=== PATIENT | female | born 1950 | race Caucasian/White ===

== ENCOUNTER 2019-02-07 20:26 | Observation (INO) | payer MEDICARE, OTHER ==
[2019-02-07] MEDS: TEMAZEPAM 15 MG CAP PO SCH (22:41)
[2019-02-07] MEDS: CARVEDILOL 12.5 MG TAB PO SCH (22:41)
[2019-02-07] MEDS: hydrALAZINE HCL 25 MG TAB PO SCH (22:41)
[2019-02-08] MEDS: CARVEDILOL 12.5 MG TAB PO SCH ×2 (06:29→18:46)
[2019-02-08] MEDS ORDERED: ASPIRIN 325 MG TAB PO STA (09:37)
[2019-02-08] MEDS: ATORVASTATIN 40 MG TAB PO SCH (10:27)
[2019-02-08] MEDS: hydrALAZINE HCL 25 MG TAB PO SCH ×3 (10:27→23:01)
[2019-02-08] MEDS ORDERED: LIDOCAINE 1% INJ 10MG/ML (20 ML MDV) ONE (15:10)
--- NOTE | 2019-02-08 15:21 | PN ---
PROGRESS NOTE Mrs Gaffney is an lady with CAD under the care of Dr. Conteh, transferred from [facility] for LAD PLUCK SEPARATOR to be performed later today. She is resting comfortably. Vitals are stable, S1-S2 heard normally. Lungs are clear. Abdomen and lower extremity exam unchanged. Plan is to continue current medications, increase activity and she will proceed with PCI by Dr. Conteh this afternoon. I am resuming her medications including beta blockers, statins, and also aspirin as well. She will received 325 mg of aspirin today. MMODL / IJN: [id number] /
[2019-02-08] MEDS ORDERED: MIDAZOLAM 2 MG/2 ML VIAL IV ONE (15:32)
[2019-02-08] MEDS ORDERED: SODIUM CHLORIDE 0.9% 1,000 ML IV ONE (15:33)
[2019-02-08] MEDS ORDERED: LIDOCAINE 1% INJ 10MG/ML (20 ML MDV) SQ ONE (15:36)
[2019-02-08] MEDS ORDERED: ENALAPRILAT 1.25 MG/ML 1 ML VIAL ONE (15:41)
[2019-02-08] MEDS ORDERED: hydrALAZINE HCL 20 MG/ML 1 ML VIAL ONE (15:42)
[2019-02-08] MEDS ORDERED: BIVALIRUDIN BOLUS 250 MG/50 ML IV ONE (15:50)
[2019-02-08] MEDS ORDERED: BIVALIRUDIN 250 MG in SODIUM CHLORIDE 0.9% 50 ML IV ONE ×2 (15:51→16:35)
[2019-02-08] MEDS ORDERED: NITROGLYCERIN 1000MCG/10ML SYRINGE INTRACORON ONE (15:57)
[2019-02-08] MEDS ORDERED: METOPROLOL TARTRATE 5 MG/5 ML VIAL IVP ONE ×2 (16:00→16:02)
[2019-02-08] MEDS ORDERED: hydrALAZINE HCL 20 MG/ML 1 ML VIAL IV ONE (16:00)
[2019-02-08] MEDS: NITROGLYCERIN 1000MCG/10ML SYRINGE INTRACORON ONE ×3 (16:04→16:25)
[2019-02-08] MEDS ORDERED: TICAGRELOR 90 MG TAB ONE (16:05)
[2019-02-08] MEDS ORDERED: IOPAMIDOL-370 125ML BTL INJ ONE (16:08)
[2019-02-08] MEDS ORDERED: fentaNYL (PF) 50 MCG/ML 2 ML AMP ONE (16:14)
[2019-02-08] MEDS ORDERED: fentaNYL (PF) 50 MCG/ML 2 ML AMP IV ONE (16:15)
[2019-02-08] MEDS ORDERED: NITROGLYCERIN SL TABS 0.4 MG TAB SUBLINGUAL ONE ×2 (16:19→16:20)
[2019-02-08] MEDS ORDERED: TICAGRELOR 90 MG TAB PO ONE (16:34)
[2019-02-08] MEDS ORDERED: IOPAMIDOL-370 100ML BTL INJ ONE (16:35)
[2019-02-08] MEDS ORDERED: ATROPINE SULFATE 0.1 MG/ML 10ML SYRINGE IV PRN (16:45)
[2019-02-08] MEDS ORDERED: NITROGLYCERIN SL TABS 0.4 MG TAB SUBLINGUAL PRN (16:45)
[2019-02-08] MEDS ORDERED: MAG HYDROX/AL HYDROX/SIMETH 30 ML CUP PO PRN (16:45)
[2019-02-08] MEDS ORDERED: RX INFO: IV CONTRAST WAS GIVEN 1 EACH MISC MISCELLANE PRN (16:45)
[2019-02-08] MEDS ORDERED: ZOLPIDEM 5 MG TAB PO PRN (16:45)
[2019-02-08] MEDS ORDERED: SODIUM CHLORIDE 0.9% 1,000 ML IV SCH (16:45)
[2019-02-08] MEDS ORDERED: ONDANSETRON 4 MG/2 ML VIAL IM STA (17:21)
--- NOTE | 2019-02-08 17:30 | PTCA ---
PERCUTANEOUSTRANS CORORONARY ANGIOGRAPHY DATE OF PROCEDURE: 02/08/2019 PERFORMING PHYSICIAN: Syd Conteh MD, tax senior associate. PROCEDURE PERFORMED: Successful stenting of the mid left anterior descending artery using a 3.0 x 18 mm Xience drug-eluting stent which was post dilated using 3.25 mm NC balloon with an excellent angiographic result and reduction of stenosis from 90% to 0%. INDICATION: This is a 68-year-old female patient whom I follow at [place] with known history of coronary artery disease and prior stenting of the RCA, left circumflex and LAD. She was experiencing symptoms of exertional dyspnea concerning for angina equivalent. The patient never had chest discomfort before the stenting, but she was experiencing symptoms of exertional shortness of breath. Because of that, a heart catheterization was advised. The patient underwent heart catheterization at [facility] and that revealed critical disease involving the mid left anterior descending artery with intermediate disease involving the left circumflex. Because of that, she was brought today to undergo an intervention of the LAD. APPROACH: Right common femoral artery. COMPLICATIONS: None. LEVEL OF SEDATION: Moderate with sedation length of 56 minutes. PROCEDURE DESCRIPTION: After obtaining informed consent, the patient was brought to the cardiac labor contract analyst. The right common femoral artery was cannulated using micropuncture technique. The micropuncture wire passed easily. Then I placed a 6-Scottish sheath in the right common femoral artery. After that I started anticoagulation using Angiomax. Subsequently I engaged the left main using an XP35 LAD guide. I did wire the LAD using a run-through wire. Subsequently I did balloon angioplasty of the LAD using a 2.5 x 12 mm balloon before I deployed 3.0 x 18 mm Xience drug-eluting stent where the stent was positioned under fluoroscopy guidance and deployed under 18 atmospheres for 20 seconds. I post dilated the stent using 3.25 mm NC balloon which was inflated under 18 atmospheres for 20 seconds. The following angiogram showed good angiographic results with reduction of stenosis from 80% to 90% to 0%. The procedure was completed without any complications. POST-PROCEDURE MANAGEMENT: 1. Dual anti-platelet therapy. 2. Risk factor modifications. 3. Follow up with the patient. MMODL / IJN: [id number] /
[2019-02-08] MEDS ORDERED: ONDANSETRON 4 MG/2 ML VIAL IVP STA (18:46)
[2019-02-08] MEDS: TEMAZEPAM 15 MG CAP PO SCH (21:49)
[2019-02-08] MEDS: TICAGRELOR 90 MG TAB PO SCH (21:50)
[2019-02-09] MEDS: CARVEDILOL 12.5 MG TAB PO SCH (06:33)
[2019-02-09 06:53] LABS: Basophils % (A) 0 %; Eosinophils # (A) 0.2 k/uL (0-0.7); Eosinophils % (A) 2 %; HCT 36.9 % (34.0-46.0); HGB 11.3 gm/dL (11.4-16.0); Lymphocytes # (A) 0.8 k/uL (1.0-4.8); Lymphocytes % (A) 11 %; MCH 28.6 pg (25.0-35.0); MCHC 30.6 g/dL (31.0-37.0); MCV 93.6 fL (80.0-100.0); Monocytes # (A) 0.4 k/uL (0-1.0); Monocytes % (A) 6 %; Neutrophils % (A) 80 %; Platelet Count 291 k/uL (150-450); RBC 3.94 m/uL (3.80-5.40); RDW 13.2 % (11.5-15.5); WBC 7.4 k/uL (3.8-10.6)
[2019-02-09 07:02] LABS: Sodium 139 mmol/L (137-145)
[2019-02-09 07:03] LABS: Anion Gap 5 mmol/L; Blood Urea Nitrogen 14 mg/dL (7-17); Calcium 9.4 mg/dL (8.4-10.2); Carbon Dioxide 27 mmol/L (22-30); Chloride 107 mmol/L (98-107); Glucose 130 mg/dL (74-99)
[2019-02-09 08:04] VITALS: RESP 18
--- NOTE | 2019-02-09 08:10 | DS ---
DISCHARGE SUMMARY ADMISSION DATE: 02/07/2019 DISCHARGE DATE: 02/09/2019 BRIEF HISTORY: This is a 68-year-old female patient who I follow up at [place] with known history of coronary artery disease and prior triple-vessel coronary angioplasty and stenting, who was experiencing symptoms of exertional dyspnea concerning for angina equivalent. She underwent heart catheterization at [facility] and that revealed critical disease involving the LAD in the midportion. She underwent yesterday successful stenting of the mid LAD with good angiographic results and without any complication. The patient is going to be discharged home on dual anti-platelet therapy and statin and I will follow up with the patient in the office in a week. MMODL / IJN: [id number] /
[2019-02-09] MEDS: hydrALAZINE HCL 25 MG TAB PO SCH (08:24)
[2019-02-09] MEDS: TICAGRELOR 90 MG TAB PO SCH (08:25)
[2019-02-09] MEDS: ATORVASTATIN 40 MG TAB PO SCH (08:25)
[2019-02-09] MEDS ORDERED: ASPIRIN 81 MG PO SCH ×3 (09:00)
[2019-02-09 11:21] VITALS: BMI 44.8
[2019-02-09 13:52] VITALS: BP 116/56; PULSE 70; TEMP 98.1
== END 2019-02-09 13:52 | disposition home or self-care (01) ==
LOC: 3SCARD 20:26
PROVIDERS: ADMIT Internal Medicine Interventional Cardiology; ATTEND Internal Medicine Interventional Cardiology
DX: I25.10 Atherosclerotic heart disease of native coronary artery without angina pectoris (principal); I10 Essential (primary) hypertension; I42.9 Cardiomyopathy, unspecified; E78.5 Hyperlipidemia, unspecified; J44.9 Chronic obstructive pulmonary disease, unspecified; R53.83 Other fatigue; I73.9 Peripheral vascular disease, unspecified; I35.0 Nonrheumatic aortic (valve) stenosis; Z95.5 Presence of coronary angioplasty implant and graft; E66.9 Obesity, unspecified; Z68.41 Body mass index [BMI] 40.0-44.9, adult; Z79.899 Other long term (current) drug therapy; Z79.82 Long term (current) use of aspirin; Z88.0 Allergy status to penicillin; Z82.49 Family history of ischemic heart disease and other diseases of the circulatory system
CPT/HCPCS: 94760; 80048; 85025; 99152; 99153 ×3; G0378 ×3; G0379; C9600; C1725 ×3; C1887; C1769 ×3; C1894; C1760; C1874; J2250; J0360; J2405; J2001; J3010; J0583; Q9967 ×2